=== PATIENT | male | born 1995 | race African-American/Black ===

== ENCOUNTER 2020-05-19 09:13 | Day surgery (SDC) | payer MEDICAID ==
[2020-05-18 12:10] LABS: COVID AG,FIA SOURCE NASOPHARYNGEAL
[~2020-05-19] VITALS: Ht 175.3 cm; Wt 77.3 kg
[~2020-05-19 09:13] MED LIST: SODIUM CHLORIDE 0.9% 1,000 ML IV ONE
[2020-05-19] MEDS ORDERED: LIDOCAINE/PF 2% 5 ML VIAL INJ ONE (12:00)
[2020-05-19] MEDS ORDERED: PROPOFOL 1% 20 ML VIAL IVP ONE (12:00)
[2020-05-19] MEDS ORDERED: OXYGEN THERAPY IH SCH (20:00)
== END 2020-05-19 12:40 | disposition home or self-care (01) ==
LOC: SURGERY 09:13 → EDSEX 12:00 → SURGERY 12:40
PROVIDERS: ATTEND Specialist
DX: K21.9 Gastro-esophageal reflux disease without esophagitis (principal); K29.50 Unspecified chronic gastritis without bleeding; K31.89 Other diseases of stomach and duodenum; Z20.828 Contact with and (suspected) exposure to other viral communicable diseases
CPT/HCPCS: 43239; 87426; 88305; 88312; 88313; C1769; C9803; J2704; J3490